=== PATIENT | female | born 1945 | race Caucasian/White ===

== ENCOUNTER 2018-04-08 06:39 | Day surgery (SDC) | payer MEDICARE, OTHER, SELFPAY ==
[2018-03-15 12:45] VITALS: BMI 32.8
[2018-04-08] VITALS (15 sets, daily range): BP systolic 91–137; BP diastolic 53–88; PULSE 62–83; RESP 10–18; TEMP 36.1–37; O2SAT 95–99; BMI 32.5
[2018-04-08] MEDS: LACTATED RINGERS 1,000 ML 42 ML IV ×2 (07:30→09:29)
[2018-04-08] MEDS: MIDAZOLAM 2 MG/2 ML VIAL IV (07:45)
[2018-04-08] MEDS: fentaNYL 100 MCG/2 ML INJ IV (07:45)
--- NOTE | 2018-04-08 08:00 | SUR.PREOP ---
Femoral block done by Dr Urban between 0745 and 0752. Tolerated well. Pre op meds of Fentanyl & Midazolam given and no oxygen used.
[2018-04-08] MEDS: CELECOXIB 200 MG CAPSULE 400 MG PO (08:04)
[2018-04-08] MEDS: CEFAZOLIN 2 GM/100 ML FROZ.PIGGY IV ×3 (08:09→23:44)
--- NOTE | 2018-04-08 08:13 | PM.PREOP ---
Pre-operative Note Interval Note Pre-op Check: History & Physical Reviewed by Physician
[2018-04-08] MEDS: LIDOCAINE 1% W/EPI INJ 20 ML INJ (08:22)
--- NOTE | 2018-04-08 08:53 | SUR.OPER ---
Supine on padded OR bed. Pillow under head, arms secured on padded armboards <90 degree abduction. Safety belt across torso. Non-operative leg secured with tape over blanket over lower leg. Operative leg secured in DeMayo/Shabbir positioner. Foam padded brace at thigh of operative leg.
[2018-04-08] MEDS: BUPIVACAINE 0.5% W/ EPI (PF) 20 ML, BUPIVACAINE LIPOSOME 266 MG, SODIUM CHLORIDE 0.9% 8... INJ (09:10)
[2018-04-08] MEDS: BUPIVACAINE 0.5% W/ EPI (PF) 10 ML, TRANEXAMIC ACID 1,000 MG, SODIUM CHLORIDE 0.9% 20 ML INJ (09:11)
[2018-04-08] MEDS: POVIDONE-IODINE 15 ML, SODIUM CHLORIDE 0.9% 250 ML TOP (09:49)
--- NOTE | 2018-04-08 10:02 | SUR.OPER ---
RELIEF V [id number]
--- NOTE | 2018-04-08 10:15 | P.OP_ITS ---
Operative Date/Time/Diagnoses - Date of procedure: 04/08/18 Time of procedure: 10:10 Pre-op diagnosis: Right knee osteoarthritis with flexion contracture Post-op diagnosis: same Procedure & Clinicians Procedure: Right total knee arthroplasty Same procedure as scheduled: Yes Indications: The patient presents today for total knee arthroplasty after failure of conservative treatment. The nature of the procedure including the risks and benefits, alternatives, postoperative course and expected outcome were discussed and all questions answered. Consent was obtained. Operative site confirmed and marked. Surgeon: Julio Cameron Ware[employer] Team Leader: Sneha Meyer Anesthesia Type: Spinal, Peripheral nerve block and Local Operative Notes Findings: The patient had a 15-20 degree flexion contracture and relatively fixed varus alignment. Closure Type: primary Specimen(s): none sent Implants & Drains: Stoll and [employer] Shiva BCS: 5 femoral component, 5 tibial component, 9 mm BCS polyethylene tray and 35 mm x 7.5 mm mm round patella Applied: implant(s) Estimated Blood Loss (mL): 75 Tourniquet time (min): 35 Procedure in detail: The patient was taken to the operative suite and placed under spinal anesthesia with an adductor nerve block. The patient was given prophylactic antibiotics prior to surgery. The patient was also given tranexamic acid, 1 g, just prior to surgery for postoperative hemostasis. [The lateral knee was prepped and the joint injected with 20 mL of 1% Lidocaine with epinephrine. ] The knee was then prepped and draped in usual sterile fashion. The leg was exsanguinated with an Esmarch dressing and the tourniquet raised to [250] torr. A 15 cm anterior incision was made. Next a medial trivector arthrotomy was made. The extensor mechanism was marked to ensure accurate repair. Initial exposing dissection was carried out medially and laterally. The knee was then extended and the patellar thickness was measured and a cut made removing approximately 7-8 mm of bone [ with a goal of restoring normal patellar thickness] . The patella was then sized and drilled. Some excess lateral bone was excised and the patellofemoral ligament released. The tourniquet was then released. The knee was then flexed and the [employer] femoral guide was placed. The anterior pins were placed and the distal rotation holes drilled. The distal cutting guide was placed and the templated distal femoral cut was made. The templating cutting block was then placed and the anterior, posterior and chamfer cuts made. The [employer] tibial guide was placed and the alignment checked along the axis of the proximal tibial with a yvan. The proximal tibial cut was then made with an oscillating saw. All meniscus and bony debris was then removed. Flexion extension gaps were checked. The knee was tight medially especially in flexion. In addition to routine osteophyte removal and soft tissue releases the MCL was released percutaneously with an 18 gauge needle which helped to balance the knee. There is still slightly increased lateral compared to medial laxity in flexion. The soft tissues were then injected with a combination of [20 mL of half percent Marcaine with epinephrine and 20 mL of Exparel]. The trial components were then placed. The knee went into full extension and flexion beyond 120?. There was [excellent] medial- lateral balance throughout motion. Patellar tracking was [excellent]. The trial components were removed and size is confirmed for the final implants. The knee was then exsanguinated with an Esmarch dressing and the tourniquet reapplied for cementing. The knee was cleansed with Pulsavac irrigation and dried. The final components were cemented in with high viscosity vacuum mixed bone cement with antibiotics. The knee was held in extension and the patellar clamp until the cement had adequately cured. The knee was then irrigated with dilute Betadine solution. The extensor mechanism was closed with 5 interrupted #1 Vicryl sutures in 90 degrees of flexion. [The joint was then injected with a combination of 1 g of tranexamic acid and 20 mL of quarter percent Marcaine with epinephrine.] The subcutaneous tissue was closed with 2-0 Vicryl. The skin was closed with [ jabari and surgical adhesive]. [ An Aquacell] dressing and Bobby wrap were then applied. Complications: none Condition: stable Disposition: PACU Plan for aftercare: [facility] protocol for total knee arthroplasty. Aspirin for DVT prophylaxis.
--- NOTE | 2018-04-08 10:30 | DI.RAD.S_ITS ---
PROCEDURE: XR KNEE RT 1TO2V INDICATIONS: POST OP RIGHT KNEE TECHNIQUE: 2 views of the knee were acquired. COMPARISON: [facility], MR, MR KNEE RT WO CON, 03/10/2018, 9:55. [facility], CR, XR KNEE 1 OR 2 VIEWS RIGHT, 03/01/2018, 10:34. FINDINGS: Expected postoperative changes of the right knee are present related to interval total right knee arthroplasty. The metallic prosthetic components are properly seated without periprosthetic fracture or lucency. No suspicious osseous lesions are evident. Expected postoperative changes within the overlying soft tissues are present with areas of soft tissue edema, air, and fluid. IMPRESSION: Expected post surgical changes related to total right knee arthroplasty. Dictated by: Gerry Morton M.D. on 04/08/2018 at 10:22 Approved by: Gerry Morton M.D. on 04/08/2018 at 10:23
--- NOTE | 2018-04-08 11:43 | PC.NURSE ---
Day shift: Arrived on unit at approx 1115 from PACU in AC bed. Oriented to room and call light. Denies pain. Sensation limited BLE's from spinal and block. RA 97%. Using I.S. JUDY wrqap and aquacel CDI. Ice at site and tolerating. Call light in reach. Agrees to not get OOB w/o help from staff. SL at this time.
[2018-04-08] MEDS: ACETAMINOPHEN 325 MG TABLET 650 MG PO ×2 (12:00→19:18)
[2018-04-08] MEDS: OXYCODONE IR 5 MG TABLET 10 MG PO ×3 (12:20→20:45)
[2018-04-08] MEDS: ONDANSETRON 4 MG ODT PO ×2 (15:37→23:13)
--- NOTE | 2018-04-08 16:02 | PT.IIE ---
Current Diagnoses Unilateral primary osteoarthritis, right knee (04/08/18) Surgery Performed Operation Date: 04/08/18 07:45 Actual Procedures p Total Knee Arthroplasty(Right) - Julio Cameron MD Surgical History (Last Updated 03/15/18 @ 13:14 by Corry Moeller RN) History of bilateral tubal ligation (Acute) Hx of eye surgery (Acute) Hx of hammer toe correction (Acute) Hx of tonsillectomy (Acute) History of hip replacement Status post arthroscopy Medical History (Last Updated 03/15/18 @ 12:49 by Corry Moeller RN) Osteoarthritis (Acute) Physical Therapy Inpatient Evaluation/Re-Eval M1 PT/OT-IP Prior Functional Status Start: 04/08/18 15:48 Freq: NEEDED Status: Active Protocol: Document 04/08/18 15:49 AB (Rec: 04/08/18 16:02 AB [id number]) Medical Review Prior Functional Status Medical History Reviewed Yes Mobility and Gait pt stated that she is independent with all mobilities and ambulation without AD Social History Household Members spouse Living Arrangements House Number of Floors (Floors) Two Floors Number of Stairs To Enter/Railing? has 2 steps to enter from the garage without rails; from the front door has 1 step to enter but pt has to walk farther to get into the house pt stays on main level of the house Home Environment Walk in Shower Tub/Shower Built-In Shower Seat Home Equipment Front Wheel Walker Straight Cane Employment Status Retired Additional Social History Comment pt has a tub shower without shower chair but sister can lend her a shower chair. has grab bar on tub shower. pt stated that spouse has a walk in shower with buit in seat but no grab bars. M2 PT-IP Current Condition Start: 04/08/18 15:48 Freq: NEEDED Status: Active Protocol: Document 04/08/18 15:49 AB (Rec: 04/08/18 16:02 AB [id number]) Physical Therapy Current Condition Current Condition Evaluation Date 04/08/18 Treatment Diagnosis s/p R TKA Onset Date 04/08/18 Weight Bearing Status Weight Bearing Status Weight Bear as Tolerated M3 PT-IP Subjective Start: 04/08/18 15:48 Freq: NEEDED Status: Active Protocol: Document 04/08/18 15:49 AB (Rec: 04/08/18 16:02 AB [id number]) Subjective Physical Therapy Visit Type Type Initial Evaluation Visit Start Time 15:05 Visit Stop Time 15:45 Total Visit Minutes 40 Number of TESTER ROCKET ENGINE Visits 0 Physical Therapy Visit Comments Patient Comments pt agreeable to do therapy Therapy Pain Assessment Pain When Pain Assessed At Rest Pain Present Pain Present Pain Reported Location Right Knee Intensity 4 Scale Used Numeric (1 - 10) Pain Management Techniques Apply Cold M4 PT-IP Mobility and Gait Start: 04/08/18 15:48 Freq: NEEDED Status: Active Protocol: Document 04/08/18 15:49 AB (Rec: 04/08/18 16:02 AB [id number]) PT-Bed Mobility Assessment Supine to Sit Supine to Sit Standby Assistance PT-Transfer Assessment Sit to and From Stand Sit to and from Stand Minimal Assistance Equipment Transfer Assistive Device Gait Belt Front Wheeled Walker Orthotic/Prosthetic Devices or Brace: Yes Transfers Transfer Destination Toilet Transfer Technique pt ambulated to the toilet Gait Assessment Gait Gait Assistance Required: Minimum Assistance Distance (Feet) (feet) 20 Able to Maintain Weight Bearing Status Yes During Gait Assistive Devices Assistive Device Gait Belt Front Wheeled Walker Orthotic/Prosthetic Devices or Brace: No Gait Deviations General Gait Pattern Antalgic Step-to Gait Factors Limiting Gait Function Factors Limiting Gait Function Decreased Activity Tolerance Decreased Sensation Decreased Strength Pain Poor Balance Comments Gait Comments pt still feels numbness on R foot affecting ambulation. pt ambulated from bedside to the toilet using FWW min A and cues. pt required min A for controlled descent to the toilet using grab bar to assist. pt completed sit to stand from the toilet using grab bar min A and cues and ambulated towards the chair using FWW min A and cues. informed nurse regarding c/o nausea. BP 137/75. PT-Balance Assessment Sitting Balance and Reactions Static Sitting Balance Ability Good Dynamic Sitting Balance Ability Good Standing Balance and Reactions Static Standing Balance Ability Fair Dynamic Standing Balance Ability Fair M5 PT-IP Objective Assessments Start: 04/08/18 15:48 Freq: NEEDED Status: Active Protocol: Document 04/08/18 15:49 AB (Rec: 04/08/18 16:02 AB [id number]) Orientation Orientation/Cognition Level of Alertness Alert Orientation Name Age Birthday Month Date Year Day of Week Place Situation Gross Range of Motion Lower Extremity ROM Assessment Right Impaired Strength Lower Extremity Strength Assessment Left Impaired Sensation Assessment Sensation Gross Sensation Right LE Impaired Sensation Description Numbness M6 PT-IP Treatment Start: 04/08/18 15:48 Freq: NEEDED Status: Active Protocol: Document 04/08/18 15:49 AB (Rec: 04/08/18 16:02 AB [id number]) Physical Therapy Treatment Education Education Provided Precautions Weight Bearing Status Post-Op Packet Safety M7 PT-IP Assessment and Plan Start: 04/08/18 15:48 Freq: NEEDED Status: Active Protocol: Document 04/08/18 15:49 AB (Rec: 04/08/18 16:02 AB [id number]) PT Summary Assessment and Plan Potential Rehabilitation Potential Good Status of Condition at Evaluation Evolving Summary Impairments Pain ROM Strength Balance Coordination Sensation Tone Cognition Bed Mobility Transfers Gait Activity Tolerance Assessment Summary pt requiring min A with mobility and unable to tolerate much activity today with c/o nausea. BP checked: 137/75. pt will likely improve during hospital stay. pt will have spouse assist her at home and has outpt PT already set up. Goals Bed Mobility Goal Independent Transfer Goal Independent Gait Goal Independent Gait Distance 100 Other Goals up/down 2 steps without rails using FWW Days to Meet Goals 3 Frequency of Treatment Frequency Of Treatment Twice a Day Treatment Plan Physical Therapy Treatment Plan Bed Mobility Training Transfer Training Gait Training Therapeutic Exercise Balance Retraining Post Op Education Discharge Planning Hot or Cold Pack Neuromuscular Re-ed Coordination Retraining Manual Therapy Other Recommendations and Next Treatment ambulation, stair climbing Focus Recommendations To Nursing Amount of Assist Needed 1 Person Assist Discharge Recommendations PT Discharge Recommendations Home with Assistance Outpatient PT Provider Visit Care Team Role Provider Type Chandni Mckeon MD Primary Care Provider Physician Specialty: Family Practice Julio Cameron MD Admit Provider Physician Attending Provider Specialty: Orthopedics
[2018-04-08] MEDS: SODIUM CHLORIDE 0.9% FLUSH 10 ML IV ×4 (16:36→23:44)
[2018-04-08] MEDS: ASPIRIN EC 81 MG TABLET PO (20:45)
[2018-04-08] MEDS: NAPROXEN 250 MG TABLET PO (20:45)
[2018-04-08] MEDS: METOCLOPRAMIDE HCL 10 MG TABLET PO (22:10)
[2018-04-08] MEDS: HYDROMORPHONE 2 MG INJ IV (22:10)
--- NOTE | 2018-04-08 22:30 | PC.NURSE ---
SHIFT NOTE Pt states PRN 10mg oxycodone ineffective for R knee pain during the late evening. pt had 1 episode emesis while up to the BSC. administered PRN reglan and dilaudid. Pt educated on pain management options available. pt currently resting, states she prefers not to be woken for pain meds at night. will communicate to oncoming RN.
--- NOTE | 2018-04-09 00:02 | PC.NURSE ---
Addendum entered by Loni Galvan R.N. 04/09/18 05:52: Patient states pain is down to 2/10 and denies any further nausea. Agreeable to taking scheduled Tylenol this morning. Original Note: Addendum entered by Loni Galvan R.N. 04/09/18 04:44: Assisted to walk to bathroom using walker and SBA and did well with transfer and ambulation. After getting back to bed became nauseated again and had a 160cc emesis of light bile colored fluid. Medicated with Reglan for nausea. Initially when getting out of bed denied both pain and nausea. Now after being up states the dogs are starting to bark and rates pain as 5/10; medicated with Oxycodone and ice applied to knee. Original Note: Patient is alert and oriented. Breath sounds CTA with RA sat of 91%; reports she surpasses goal on incentive spirometer. HRR. During shift change patient had a 250cc emesis after which she was medicated with Zofran. On initial reassessment denied nausea but after movement had another 100cc emesis. Plan to wait to see if Zofran will still work to prevent further emesis and if not will try IM Vistaril. BT hypoactive but patient states she is passing flatus. Denies dysuria, frequency, urgency or incontinence. Bobby dressing to left knee is CDI. CMS is intact bilaterally with full sensation now returned. Able to turn self in bed. Reportedly up to bathroom with walker and 1 assist; denies unsteadiness or weakness. Does state pain is currently 3/10 but declined pain medication or ice pack; also declined scheduled Tylenol. Fall risk score is high and bed alarm is activated.
[2018-04-09 03:10] VITALS: BP 105/65; PULSE 74; RESP 16; TEMP 36.4; O2SAT 95
[2018-04-09] MEDS: METOCLOPRAMIDE HCL 10 MG TABLET PO (04:28)
[2018-04-09] MEDS: OXYCODONE IR 5 MG TABLET 10 MG PO ×3 (04:30→12:48)
[2018-04-09] MEDS: ACETAMINOPHEN 325 MG TABLET 650 MG PO ×2 (05:48→11:16)
--- NOTE | 2018-04-09 07:43 | PM.DS.1 ---
History of Present Illness Date Patient Seen: 04/09/18 Time Patient Seen: 07:43 Chief complaint: [id number] RIGHT TOTAL KNEE ARTHROPLASTY Narrative: Patient is a 72-year-old female with a history of right knee osteoarthritis. She failed conservative treatment and elected for a right total knee replacement with Dr. Cameron at [facility] on 04/08/18. Discharge Providers Date of admission: 04/08/18 06:39 Primary care physician: Chandni Mckeon MD Consults: 04/08/18 11:13 Consult to Discharge Planning Routine Comment: Consult to Physical Therapy Evaluate & Treat Comment: Physician Instructions: postop TKA protocol Consult to Respiratory Therapy Evaluate & Treat Comment: Physician Instructions: Evaluate and treat Discharge provider: Sneha Meyer PA-C Summary Discharge Diagnosis: Right knee osteoarthritis. Hospital Course: Patient was admitted and taken to the operating room where she had a right total knee arthroplasty by Dr. Camerno. She recovered well and was transferred to the floor for further care. Later that night she had issues with nausea and vomiting. She was given Zofran and Reglan. She has a history of postop nausea and vomiting. She had given a prescription for oral dissolving Zofran. Patient has been up to go the restroom and is ambulating. She would like to go home later this afternoon if cleared by PT and have her nausea and vomiting have settled down. Patient will be discharged with the prescription for Zofran 4 mg q.4h as needed nausea. She is a [facility] patient and already has prescriptions for oxycodone, Vistaril and an anti inflammatory. Aspirin 81 mg b.i.d. will be used for DVT prophylaxis. She has a follow-up appointment next week in our office. She has all therapy appointment next week at her [facility]. Status at Discharge Cognitive/behavioral status at discharge: Alert and orient x3 Functional status at discharge: independent ambulation Overall status at discharge: patient is progressing back to baseline Time Spent with Patient Less than 30 minutes Exam Vital Signs (past 8 hours): Vital Signs - 8 hr 04/09/18 03:10 Temperature 97.6 F Pulse Rate 74 Respiratory Rate 16 Blood Pressure 105/65 Pulse Oximetry 95 Pulse Oximetry 95 Oxygen Delivery Method Room Air Narrative Exam Narrative: Patient in bed. Alert orient x3. Appears comfortable. Right knee dressing clean dry and intact. With the Bobby overwrap. Moderate swelling right knee. Bilateral calves soft and nontender. 5/5 right ankle strength. Neurovascular status intact. Abdominal area soft and nontender in all 4 quadrants. Discharge Plan Discharge Plan Patient Disposition: Home, Self-Care Discharge comment: Patient can be discharged this afternoon if cleared by physical therapy and nausea is under control. Discharge Med Rec/Prescriptions Prescriptions: New ondansetron 4 mg Tablet,Disintegrating 4 mg PO Q4HR PRN (Reason: Nausea) Qty: 40 RF: 0 hydroxyzine HCl 50 mg/mL Solution 25 mg IM Q4H PRN (Reason: Nausea) 30 Days RF: 0 oxycodone 5 mg Tablet 10 mg PO Q4H PRN (Reason: Pain, Moderate) Qty: 0 RF: 0 aspirin 81 mg Tablet,Delayed Release (Dr/Ec) 81 mg PO BID Qty: 90 RF: 0 Continue acetaminophen 500 mg Capsule 1,000 mg PO BEDTIME RF: 0 naproxen sodium [Aleve] 220 mg Capsule 220 mg PO BEDTIME RF: 0 Follow up/Referrals: Julio Cameron MD [Physician] - (F/u on 04/15/18 at the [facility] office at the scheduled time) Provider Discharge Instructions Diet: Diet as Tolerated Activity: Activity as tolerated. Home exercises for total knee replacement. Start physical therapy next week. Cold/Heat Therapy: Apply ice to affected area for swelling and pain as needed Wound Care Report to your healthcare provider any signs of infection, such as:: chills, fever, night sweats, increased pain and unusual drainage Dressing: May shower. Leave dressing intact. Visit Report/Discharge Packet Instructions: DI for Knee Replacement Discharge Data Primary Care Provider: Chandni Mckeon Attending Provider: Juilo Cameron Admit Date/Time: 04/08/18 06:39
[2018-04-09 07:45] VITALS: BP 109/64; PULSE 77; RESP 14; TEMP 36.3; O2SAT 97
--- NOTE | 2018-04-09 07:47 | P.DS_ITS ---
History of Present Illness Date Patient Seen: 04/09/18 Time Patient Seen: 07:43 Chief complaint: [id number] RIGHT TOTAL KNEE ARTHROPLASTY Narrative: Patient is a 72-year-old female with a history of right knee osteoarthritis. She failed conservative treatment and elected for a right total knee replacement with Dr. Cameron at [facility] on 04/08/18. Discharge Providers Date of admission: 04/08/18 06:39 Primary care physician: Chandni Mckeon MD Consults: 04/08/18 11:13 Consult to Discharge Planning Routine Comment: Consult to Physical Therapy Evaluate & Treat Comment: Physician Instructions: postop TKA protocol Consult to Respiratory Therapy Evaluate & Treat Comment: Physician Instructions: Evaluate and treat Discharge provider: Sneha Meyer PA-C Summary Discharge Diagnosis: Right knee osteoarthritis. Hospital Course: Patient was admitted and taken to the operating room where she had a right total knee arthroplasty by Dr. Cameron. She recovered well and was transferred to the floor for further care. Later that night she had issues with nausea and vomiting. She was given Zofran and Reglan. She has a history of postop nausea and vomiting. She had given a prescription for oral dissolving Zofran. Patient has been up to go the restroom and is ambulating. She would like to go home later this afternoon if cleared by PT and have her nausea and vomiting have settled down. Patient will be discharged with the prescription for Zofran 4 mg q.4h as needed nausea. She is a [facility] patient and already has prescriptions for oxycodone, Vistaril and an anti inflammatory. Aspirin 81 mg b.i.d. will be used for DVT prophylaxis. She has a follow-up appointment next week in our office. She has all therapy appointment next week at her [facility]. Status at Discharge Cognitive/behavioral status at discharge: Alert and orient x3 Functional status at discharge: independent ambulation Overall status at discharge: patient is progressing back to baseline Time Spent with Patient Less than 30 minutes Exam Vital Signs (past 8 hours): Vital Signs - 8 hr 3 04/09/18 03:10 Temperature 97.6 F Pulse Rate 74 Respiratory Rate 16 Blood Pressure 105/65 Pulse Oximetry 95 Pulse Oximetry 95 Oxygen Delivery Method Room Air Narrative Exam Narrative: Patient in bed. Alert orient x3. Appears comfortable. Right knee dressing clean dry and intact. With the Bobby overwrap. Moderate swelling right knee. Bilateral calves soft and nontender. 5/5 right ankle strength. Neurovascular status intact. Abdominal area soft and nontender in all 4 quadrants. Discharge Plan Discharge Plan Patient Disposition: Home, Self-Care Discharge comment: Patient can be discharged this afternoon if cleared by physical therapy and nausea is under control. Discharge Med Rec/Prescriptions Prescriptions: New ondansetron 4 mg Tablet,Disintegrating 4 mg PO Q4HR PRN (Reason: Nausea) Qty: 40 RF: 0 hydroxyzine HCl 50 mg/mL Solution 25 mg IM Q4H PRN (Reason: Nausea) 30 Days RF: 0 oxycodone 5 mg Tablet 10 mg PO Q4H PRN (Reason: Pain, Moderate) Qty: 0 RF: 0 aspirin 81 mg Tablet,Delayed Release (Dr/Ec) 81 mg PO BID Qty: 90 RF: 0 Continue acetaminophen 500 mg Capsule 1,000 mg PO BEDTIME RF: 0 naproxen sodium [Aleve] 220 mg Capsule 220 mg PO BEDTIME RF: 0 Follow up/Referrals: Julio Cameron MD [Physician] - (F/u on 04/15/18 at the [facility] office at the scheduled time) Provider Discharge Instructions Diet: Diet as Tolerated Activity: Activity as tolerated. Home exercises for total knee replacement. Start physical therapy next week. Cold/Heat Therapy: Apply ice to affected area for swelling and pain as needed Wound Care Report to your healthcare provider any signs of infection, such as:: chills, fever, night sweats, increased pain and unusual drainage Dressing: May shower. Leave dressing intact. Visit Report/Discharge Packet Instructions: DI for Knee Replacement Discharge Data Primary Care Provider: Chandni Mckeon Attending Provider: Julio Cameron Admit Date/Time: 04/08/18 06:39
[2018-04-09] MEDS: ASPIRIN EC 81 MG TABLET PO (08:59)
[2018-04-09] MEDS: SODIUM CHLORIDE 0.9% FLUSH 10 ML IV (08:59)
[2018-04-09] MEDS: ONDANSETRON 4 MG ODT PO ×2 (09:38→12:46)
[2018-04-09] MEDS: hydrOXYzine pamoate 25 MG CAPSULE PO ×2 (10:19→13:14)
[2018-04-09 11:45] VITALS: BP 110/65; PULSE 75; RESP 16; TEMP 36.5; O2SAT 97
--- NOTE | 2018-04-09 13:16 | PC.NURSE ---
Day shift: Pt left unit at approx 1315 w/ her spouse going home in personal vehicle. All paperwork signed and questions answered. Pt has all personal belongings. Medicated for pain and nausea just prior to d/c as well.
--- NOTE | 2018-04-09 15:12 | CM.DANOTE ---
DCP Assessment/ DC NOte: Met w/pt this morning, explained SW role. Pt was getting ready to leave w/spouse. Pt was part of the [facility]. Pt explained she is indp/active at baseline and denies needs upon her return home. Pt scheduled w/outpt therapy. Spouse to assist and transport home. BRENNAN
--- NOTE | 2018-04-09 15:37 | PT.IPTN ---
Current Diagnoses Unilateral primary osteoarthritis, right knee (04/08/18) Surgery Performed Operation Date: 04/08/18 07:45 Actual Procedures p Total Knee Arthroplasty(Right) - Julio Cameron MD Physical Therapy Treatment Note M2 PT-IP Current Condition Start: 04/08/18 15:48 Freq: NEEDED Status: Active Protocol: Document 04/09/18 09:15 TMS (Rec: 04/09/18 15:37 TMS [email or web address]) Physical Therapy Current Condition Current Condition Evaluation Date 04/08/18 Treatment Diagnosis s/p R TKA Onset Date 04/08/18 Precautions Other Precautions Reviewed edema control with right L.E. in straight position and ice. Weight Bearing Status Weight Bearing Status Weight Bear as Tolerated M3 PT-IP Subjective Start: 04/08/18 15:48 Freq: NEEDED Status: Active Protocol: Document 04/09/18 09:15 TMS (Rec: 04/09/18 15:37 TMS [email or web address]) Subjective Physical Therapy Visit Type Type Treatment Note Visit Start Time 09:00 Visit Stop Time 09:38 Total Visit Minutes 38 Number of [employer] Visits 1 Physical Therapy Visit Comments Patient Comments Pt. has discharge orders, states she doesn't have pain at rest. Only had tylenol. Therapy Pain Assessment Pain When Pain Assessed At Rest Location Right Knee Intensity 0 Scale Used Numeric (1 - 10) Pain Management Techniques Apply Cold M4 PT-IP Mobility and Gait Start: 04/08/18 15:48 Freq: NEEDED Status: Active Protocol: Document 04/09/18 09:15 TMS (Rec: 04/09/18 15:37 TMS [email or web address]) PT-Bed Mobility Assessment Supine to Sit Supine to Sit Standby Assistance Scooting Scooting to Edge of Bed Standby Assistance PT-Transfer Assessment Sit to and From Stand Sit to and from Stand Standby Assistance Equipment Transfer Assistive Device Front Wheeled Walker Transfer Ability Level of Assist Standby Assistance Gait Assessment Gait Gait Assistance Required: Contact Guard Assist Able to Maintain Weight Bearing Status Yes During Gait Assistive Devices Assistive Device Front Wheeled Walker Orthotic/Prosthetic Devices or Brace: No Gait Deviations General Gait Pattern Decreased Stride Length Factors Limiting Gait Function Factors Limiting Gait Function Decreased Strength Pain Comments Gait Comments Good step through gait pattern , slightly shakey with gait but good stability. Pt. had emesis after treatment, RN aware. Pt. requested pain medication after treatment, RN aware. Stair Climbing Assessment Evaluation Level of Assist On Stairs Minimal Assistance Devices Stair Climbing Assistive Devices Straight Cane Technique/Endurance Stair Climbing Direction Ascend and Descend Stair Climbing Technique Step to Step Stair Climbing Set # Repetitions (reps) 1 Comments Stair Climbing Comments Pt. doesn't have rails at home , did well using cand and Minimal manual assist. M5 PT-IP Objective Assessments Start: 04/08/18 15:48 Freq: NEEDED Status: Discharge Protocol: Document 04/08/18 15:49 AB (Rec: 04/08/18 16:02 AB [id number]) Orientation Orientation/Cognition Level of Alertness Alert Orientation Name Age Birthday Month Date Year Day of Week Place Situation Gross Range of Motion Lower Extremity ROM Assessment Right Impaired Strength Lower Extremity Strength Assessment Left Impaired Sensation Assessment Sensation Gross Sensation Right LE Impaired Sensation Description Numbness M6 PT-IP Treatment Start: 04/08/18 15:48 Freq: NEEDED Status: Active Protocol: Document 04/09/18 09:15 TMS (Rec: 04/09/18 15:37 TMS [email or web address]) Physical Therapy Treatment Exercises Exercises Ankle Pumps Quad Sets Heel Slides Straight Leg Raises Short Arc Quads Passive Knee Extension Hang M7 PT-IP Assessment and Plan Start: 04/08/18 15:48 Freq: NEEDED Status: Active Protocol: Document 04/09/18 09:15 TMS (Rec: 04/09/18 15:37 TMS [email or web address]) PT Summary Assessment and Plan Treatment Plan Other Recommendations and Next Treatment Pt. going home today. Focus Recommendations To Nursing Amount of Assist Needed 1 Person Assist Discharge Recommendations PT Discharge Recommendations Home with Assistance Outpatient PT Equipment Needed for Home Before FWW, has straight cane for Discharge gait.
== END 2018-04-09 13:18 | disposition home or self-care (01) ==
LOC: AC 04-09 11:54 → OR 04-09 16:41
PROVIDERS: PCP Family Medicine; Visit Provider Orthopaedic Surgery
PROC: 0SRC0JZ Replacement of Right Knee Joint with Synthetic Substitute, Open Approach (ICD-10-PCS; CPT 27447; principal; 2018-04-08 07:45)
DX: M17.11 Unilateral primary osteoarthritis, right knee (principal); G89.18 Other acute postprocedural pain; E66.9 Obesity, unspecified; G47.33 Obstructive sleep apnea (adult) (pediatric); Z68.32 Body mass index [BMI] 32.0-32.9, adult
CPT/HCPCS: 27447; 64450; 73560; 97110; 97116; 97162; 97530; C1776; C9290; J0690; J1170; J2250; J2704; J3010

== ENCOUNTER → 2019-03-31 07:43 | Outpatient (CLI) | payer MEDICARE, OTHER, SELFPAY ==
[2018-04-08 11:27] VITALS: BMI 32.5
[2019-03-31 09:54] LABS: Cholesterol 184 mg/dL (140-199); Glucose 98 mg/dL (80-110); HDL Cholesterol 92 mg/dL (40-60); LDL Cholesterol Calculated 75 mg/dL (<100); Triglycerides 85 mg/dL (35-150)
== END ==
PROVIDERS: PCP Family Medicine; Visit Provider Family Medicine
DX: Z13.1 Encounter for screening for diabetes mellitus (principal); Z13.6 Encounter for screening for cardiovascular disorders
CPT/HCPCS: 36415; 80061; 82947

== ENCOUNTER 2019-05-26 12:37 | Day surgery (SDC) | payer MEDICARE, OTHER, SELFPAY ==
[2018-04-08 11:27] VITALS: BMI 32.5
[2019-05-26] VITALS (7 sets, daily range): BP systolic 109–131; BP diastolic 62–79; PULSE 71–96; RESP 11–18; TEMP 36.6–36.8; O2SAT 93–98; BMI 20.5
--- NOTE | 2019-05-26 12:51 | PM.HP.1 ---
History of Present Illness Date Patient Seen: 05/26/19 Time Patient Seen: 13:51 Chief complaint: 23234 SCREENING COLONOSCOPY Narrative: 73yo F for surveillance colonoscopy. Last in 2009 with a polyp found, told to come back in 5 years. No family history, no alarm symptoms. Patient History Medical History Cataracts, bilateral (Chronic) Hearing loss (Chronic) Osteoarthritis (Chronic) Osteopenia (Chronic) Shoulder pain (Chronic ~2017) Vertigo (Chronic ~2014) Vision disorder (Chronic) Chicken pox (Resolved) Measles (Resolved ~1947) Mumps (Resolved ~1947) Surgical History Anesthesia (Resolved) History of bilateral tubal ligation (Resolved) History of hip replacement (Resolved ~2006) Hx of eye surgery (Resolved) Hx of hammer toe correction (Resolved ~2015) Hx of tonsillectomy (Resolved) Status post arthroscopy (Resolved ~2017) Family History (Updated 04/03/19 @ 19:33 by Jinny Oliver) Father Heart disease Mother Heart disease Stroke Grandfather Cancer Grandmother Heart disease Grandfather Heart disease Grandmother Stroke Social History marital status: number of children: 2 household members: spouse lives independently: Yes caregiver/support person: No housing: house Smoking Status: Never smoker second hand exposure: No alcohol intake: current substance use type: does not use Family & Social History Family History Father Heart disease Mother Heart disease Stroke Grandfather Cancer Grandmother Heart disease Grandfather Heart disease Grandmother Stroke Social History: household members spouse lives independently Yes caregiver/support person No Tobacco & Substance use: Smoking Status Never smoker alcohol intake current Meds Home Medications Medication Instructions Recorded Confirmed Type acetaminophen [Tylenol Extra See Rx Instructions .ROUTE 05/26/19 05/26/19 History Strength] .COMPLEX PRN Allergies Allergy/AdvReac Type Severity Reaction Status Date / Time No Known Drug Allergies Allergy Verified 02/09/19 08:34 Review of Systems Constitutional Constitutional: Reports as per HPI Exam Narrative Exam Narrative: AAO, NAD, female of healthy weight EOMI, MMM, no scleral icterus unlabored RA soft, nt/nd MAEW visible skin dry and intact Assessment & Plan (1) Screening for colorectal cancer: Current visit: Yes Status: Acute Assessment & Plan narrative: - plan for surveillance colonoscopy --> all R/B/A discussed and pt wishes to proceed
[2019-05-26] MEDS: SODIUM CHLORIDE 0.9% 1,000 ML 200 ML IV (13:19)
--- NOTE | 2019-05-26 14:27 | PM.OP.ENDO ---
Operative Date/Time/Diagnoses Date of procedure: 05/26/19 Time of procedure: 14:28 Pre-op diagnosis: History of colon polyps Post-op diagnosis: same Procedure & Clinicians Study performed: Surveillance Colonoscopy Same procedure as scheduled: Yes Indications: 73yo F with history of a colon polyp at last low risk screening colonoscopy here for surveillance colonoscopy. Surgeon: Soniya Interiano Procedure Notes SCOAP/Timeout: 1400 Procedure in detail: After obtaining informed consent, the patient was brought to the GI suite and placed in the left lateral decubitus position on the examination table. After placement of appropriate monitors, the patient was given incremental doses of Versed and Fentanyl until an appropriate level of sedation was achieved. A time out was held per SCOAP protocol. A digital rectal examination was performed and did not reveal any masses or obstructing lesions. The colonoscope was gently passed into the patient's anus and the entire colon navigated to the level of the cecum with minimal difficulty. Prep was adequate. Once in the cecum, the scope was slowly withdrawn being sure to go before and beyond all mucosal folds and prominences as able to get a thorough examination. No masses or polyps are noted. Other findings include scattered diverticulosis in sigmoid colon. The distal sigmoid and rectum had tight folds and turns that were visualized as best as possible. At the level of the rectal vault, the scope was retroflexed and the internal anal canal was examined. The scope was straightened and air aspirated from the colon. The instrument was removed from the patient's body and the procedure was concluded. The patient was allowed to awaken from sedation without difficulty and taken to the post-anesthesia care unit in good condition. Scope withdrawal time: 9 min Sedation minutes: 25 Findings: diverticulosis (scattered in sigmoid, mild) Specimen(s): none sent Complications: none Impression: 1. Scattered sigmoid diverticulosis 2. Tight folds in rectum and distal sigmoid Recommendations: Colonscopy in 10 years and High fiber diet Follow up: as needed Disposition: PACU
[2019-05-26] MEDS: MIDAZOLAM 5 MG/5 ML VIAL IV (14:29)
[2019-05-26] MEDS: fentaNYL 250 MCG/5 ML INJ IV (14:30)
== END 2019-05-26 15:30 | disposition home or self-care (01) ==
PROVIDERS: PCP Family Medicine; Visit Provider Surgery
PROC: 0DJD8ZZ Inspection of Lower Intestinal Tract, Via Natural or Artificial Opening Endoscopic (ICD-10-PCS; CPT 45378; principal; 2019-05-26 14:00)
DX: Z86.010 Personal history of colon polyps (principal); K57.30 Diverticulosis of large intestine without perforation or abscess without bleeding
CPT/HCPCS: G0105; 99152; J2250; J3010

== ENCOUNTER → 2022-11-05 08:35 | Outpatient (CLI) | payer MEDICARE, SELFPAY ==
[2018-04-08 11:27] VITALS: BMI 32.5
== END ==
PROVIDERS: PCP Family Medicine; Visit Provider Family Medicine
DX: R31.9 Hematuria, unspecified (principal)
CPT/HCPCS: 87077; 87086; 87186

== ENCOUNTER → 2022-12-31 12:06 | Outpatient (CLI) | payer MEDICARE, SELFPAY ==
[2018-04-08 11:27] VITALS: BMI 32.5
== END ==
PROVIDERS: PCP Family Medicine; Visit Provider Physician Assistant
DX: R31.9 Hematuria, unspecified (principal)
CPT/HCPCS: 87086

== ENCOUNTER → 2023-01-05 08:26 | Outpatient (CLI) | payer MEDICARE, SELFPAY ==
[2018-04-08 11:27] VITALS: BMI 32.5
[2023-01-05 09:45] LABS: Add Manual Diff / Slide Review NO; Basophils Absolute Auto 0 /uL (0-100); Basophils Percent Auto 0.5 % (0-2); Eosinophils Absolute Auto 0 /uL (0-450); Hemoglobin 13.4 g/dL (12.0-16.0); Lymphocytes Absolute Auto 1100 /uL (1100-4500); Lymphocytes Percent Auto 25.2 % (25-40); Mean Corpuscular HGB Conc 34.4 % (30-36); Mean Corpuscular Hemoglobin 32.4 PG (26-34); Monocytes Absolute Auto 500 /uL (0-900); Monocytes Percent Auto 10.8 % (3-14); Neutrophils Absolute Auto 2900 /uL (1500-7000); Neutrophils Percent Auto 62.5 % (50-75); Platelet Count 214 X10^3/uL (150-400); Red Blood Cell Count 4.16 X10^6/uL (4.0-5.2); Red Cell Distribution Width 12.6 % (11.6-14.8); White Blood Cell Count 4.6 X10^3/uL (4.5-11.0)
[2023-01-05 10:13] LABS: Alanine Aminotransferase 22 IU/L (<35); Albumin 4.1 g/dL (3.5-5.0); Albumin Globulin Ratio 1.4 (1.0-2.8); Alkaline Phosphatase 98 U/L (38-126); Aspartate Aminotransferase 26 IU/L (14-36); BUN Creatinine Ratio 20.4 (6-22); Bilirubin Total 0.5 mg/dL (0.2-1.3); Blood Urea Nitrogen 11 mg/dL (7-17); Calcium 8.9 mg/dL (8.4-10.2); Carbon Dioxide 27 mmol/L (22-32); Chloride 105 mmol/L (98-107); Estimated Glomerular Filt Rate > 60 mL/min (>60); Globulin 2.9 g/dL (1.7-4.1); Glucose 105 mg/dL (80-110); HEMOLYSIS < 15 (0-50); Sodium 139 mmol/L (137-145)
== END ==
PROVIDERS: PCP Family Medicine; Referring Provider Physician Assistant; Visit Provider Physician Assistant
DX: R10.2 Pelvic and perineal pain (principal); R31.9 Hematuria, unspecified
CPT/HCPCS: 36415; 80053; 85025

== ENCOUNTER → 2023-02-20 11:10 | Outpatient (CLI) | payer MEDICARE, SELFPAY ==
[2018-04-08 11:27] VITALS: BMI 32.5
--- NOTE | 2023-02-20 11:12 | DI.CT.S_ITS ---
PROCEDURE: CT IVP A/P W/WO INDICATIONS: Gross hematuria TECHNIQUE: Optional 5 mm thick noncontrast images acquired from the diaphragm to the symphysis pubis. After the administration of intravenous contrast, 5 mm thick images acquired from the diaphragm to the symphysis pubis after a 10-minute delay. 2 mm thick coronal and sagittal reformats were then performed of the kidneys and ureters. For radiation dose reduction, the following was used: automated exposure control, adjustment of mA and/or kV according to patient size. COMPARISON: None. FINDINGS: Image quality: Excellent. Lung bases: Lung bases are clear. Heart size is normal. Urinary system: Both kidneys are normal in size, without hydronephrosis or nephrolithiasis on pre-contrast images. No perinephric fat stranding. There is normal bilateral renal enhancement. Renal calyces appear normal in morphology when filled with contrast. Opacified portions of both ureters demonstrate normal caliber. Bladder wall thickness is normal. No calcified bladder stones. Other solid organs: Liver is normal in size and enhancement. Gallbladder is unremarkable without calcified gallstones.. Biliary system is non dilated. Pancreas enhances normally. Spleen is normal in size and enhancement. No adrenal nodules. Peritoneum and bowel: There is mild uncomplicated sigmoid diverticulitis. There is inflammatory change in the subjacent fat. No free fluid or air. Nodes and vessels: No retroperitoneal or mesenteric adenopathy by size criteria. Aorta and inferior vena cava are normal in size. Abdominal wall: No ventral hernias. Pelvis: No pathologic free pelvic fluid. No inguinal hernias or adenopathy. Bones: No suspicious bony lesions. No vertebral body compression fractures. Total right hip arthroplasty. IMPRESSION: 1. No renal stones, ureteral stones, hydronephrosis, or findings suspicious for malignancy. 2. Mild uncomplicated sigmoid diverticulitis. Dictated by: Hai Mendiola M.D. on 02/20/2023 at 14:56 Approved by: Hai Mendiola M.D. on 02/20/2023 at 15:17
[2023-02-20 11:37] LABS: BUN Creatinine Ratio 27.5 (6-22); Blood Urea Nitrogen 14 mg/dL (7-17); Calcium 8.8 mg/dL (8.4-10.2); Carbon Dioxide 27 mmol/L (22-32); Chloride 106 mmol/L (98-107); Estimated Glomerular Filt Rate > 60 mL/min (>60); Glucose 104 mg/dL (80-110); HEMOLYSIS 24 (0-50); Potassium 4.5 mmol/L (3.4-5.1); Sodium 139 mmol/L (137-145)
== END ==
PROVIDERS: PCP Family Medicine; Referring Provider Urology; Visit Provider Urology
DX: R31.0 Gross hematuria (principal); K57.32 Diverticulitis of large intestine without perforation or abscess without bleeding
CPT/HCPCS: 74178; 80048; Q9967

== ENCOUNTER 2023-03-10 06:49 | Day surgery (SDC) | payer MEDICARE, SELFPAY ==
[2023-03-06 09:11] VITALS: BMI 32.5
--- NOTE | 2023-03-10 | PATH_ITS ---
[facility] Accession Number: [id number] No. of containers..05 Tissue . 01 Material submitted: . PART A: BLADDER, FLOOR - BLADDER FLOOR PART B: bladder - LEFT LATERAL BLADDER WALL PART C: bladder - RIGHT LATERAL BLADDER WALL PART D: bladder, dome - BLADDER DOME PART E: bladder - CEPHALAD BLADDER . 01 Diagnosis: A. Urinary Bladder, Floor, Biopsy: Urothelium/suburothelial stroma with mild chronic inflammation. Negative for dysplasia and neoplasia. . B. Urinary Bladder, Left Lateral Wall, Biopsy: Urothelium/suburothelial stroma with minimal chronic inflammation. Negative for dysplasia and neoplasia. . C. Urinary Bladder, Right Lateral Wall, Biopsy: Urothelium/suburothelial stroma and muscularis propria with minimal chronic inflammation. Negative for dysplasia and neoplasia. . D. Urinary Bladder, Dome, Biopsy: Urothelium/suburothelial stroma with mild chronic inflammation. Negative for dysplasia and neoplasia. . E. Urinary Bldder, Cephalad, Biopsy: Urothelium/suburothelial stroma with mild chronic inflammation. Negative for dysplasia and neoplasia. [facility] 03/13/2023 1604 Local . 01 Electronically signed: . Evelyn Hastings MD, Pathologist NPI- [id number] . 01 Gross description: . Part A: BLADDER FLOOR: Received in formalin is 1 fragment(s) of olivares, soft tissue measuring 0.4 x 0.2 x 0.1 cm submitted entirely in 1 cassette(s) Part B: LEFT LATERAL BLADDER WALL: Received in formalin is 1 fragment(s) of olivares, soft tissue measuring 0.2 x 0.2 x 0.1 cm submitted entirely in 1 cassette(s) Part C: RIGHT LATERAL BLADDER WALL: Received in formalin is 1 fragment(s) of olivares, soft tissue measuring 0.2 x 0.2 x 0.1 cm submitted entirely in 1 cassette(s) Part D: BLADDER DOME: Received in formalin is 1 fragment(s) of olivares, soft tissue measuring 0.5 x 0.4 x 0.3 cm submitted entirely in 1 cassette(s) Part E: CEPHALAD BLADDER: Received in formalin is 1 fragment(s) of olivares, soft tissue measuring 0.1 x 0.1 x 0.1 cm submitted entirely in 1 cassette(s) /[facility] 03/13/2023 1606 Local . 01 Pathologist provided ICD-10: N32.9 . 01 CPT . 783758, [id number], [id number], [id number], [id number] Specimen Comment: A courtesy copy of this report has been sent to [phone] Performed at: 01 [facility] Cytology [address] [place] [address], [place], [place] [id number] MD Julio Taylor MD Phone: [phone]
[2023-03-10 07:05] VITALS: BP 162/88; PULSE 93; RESP 19; TEMP 37.1; O2SAT 96; BMI 33.4
[2023-03-10] MEDS: LACTATED RINGERS 1,000 ML 21 ML IV (07:15)
--- NOTE | 2023-03-10 07:37 | PM.PREOP ---
Pre-operative Note COVID-19 COVID-19 status: Not tested Criteria for continued procedure: Non-surgical alternatives not available or appropriate per current SOC Interval Note History & Physical reviewed/Exam performed by Physician: Yes Changes to H&P: No
[2023-03-10] MEDS: CEFAZOLIN 2 GM/100 ML PREMIX 100 ML IV (07:49)
--- NOTE | 2023-03-10 08:02 | SUR.OPER ---
Lithotomy on padded OR bed, head on pillow, arms secured on padded arm boards at <90 degrees abduction. Legs secured in padded yellow fins stirrups.
[2023-03-10 08:33] VITALS: BP 117/68; PULSE 75; RESP 11; TEMP 36.7; O2SAT 96
[2023-03-10 08:37] VITALS: BP 110/69; PULSE 72; RESP 11; O2SAT 96
[2023-03-10 08:43] VITALS: BP 111/68; PULSE 70; RESP 11; O2SAT 96
--- NOTE | 2023-03-10 08:45 | PM.OP.1 ---
Procedure & Clinicians Procedure: Cystoscopy with bladder biopsy and fulguration Same procedure as scheduled: Yes Indications: This 77-year-old female was undergoing workup for asymptomatic microscopic hematuria. That workup resulted in 1 CT scan showing mild uncomplicated diverticulitis 2. A velvety erythematous lesion on the left lateral and anterior wall of the bladder. Which felt that the time. Biopsy could be related potentially to the diverticulitis and some inflammatory changes but also appeared velvety and could represent CIS. She presents for biopsy of the bladder with fulguration. Surgeon: Aditya Jara Anesthesia Type: General Operative Notes Findings: Findings: Labial fusion, urethra normal along its length, ureteral orifices in normal position with clear efflux. Again on the left lateral aspect of the bladder there is an erythematous area which is biopsied. Random biopsies were also taken from the dome of the bladder, cephalad bladder, right lateral wall. Closure Type: not applicable Specimen(s): other (Biopsies from the bladder as noted above) Applied: catheter ([address] Guerra catheter 10 cc in the balloon) Estimated Blood Loss (mL): 5 Blood products transfused: none Procedure in detail: Procedure in detail: After informed consent was obtained, the patient was identified and brought to the operating room where she was placed in supine position on the operative table. Once there anesthesia was induced and maintained. Ensuring an adequate level of anesthesia the patient was transitioned to the lithotomy position where she was prepped, draped, prepared for Transurethral procedure. After prepping, draping, ensuring an adequate level of anesthesia and a time-out 22 Nicaraguan cystoscope was passed through the urethra in the bladder were cystoscopy was formed with the 30 and 70 degree lens. Biopsy was then taken using the biopsy forceps which resulted in 5 total samples being taken. The by biopsy forceps was removed Bugbee electrode was inserted and each of the biopsy sites was fulgurated controlling all bleeding achieving hemostasis and then a small margin taken around each with the cautery. With this done the bladder was filled drained filled and drained hemostasis appeared to be good bladder was left full scope was removed the 18 [place]ar[place]uan catheter was passed through the urethra in the bladder the balloon filled with 10 cc of sterile water and placed to gravity drainage. The patient was then awakened having tolerated the procedure well she was then transitioned to the postanesthesia care unit for recovery. There were no complications. Patient will be discharged to home with a Guerra catheter to follow up my office in approximately 10 days. Complications: none Post-operative Condition: stable Disposition: PACU Plan for aftercare: Discharge to home with Guerra catheter follow up my office in approximately 10 days for catheter removal.
[2023-03-10 08:48] VITALS: BP 124/76; PULSE 72; RESP 12; O2SAT 96
[2023-03-10 08:55] VITALS: BP 120/77; PULSE 69; RESP 11; TEMP 36.2; O2SAT 94
== END 2023-03-10 09:45 | disposition home or self-care (01) ==
PROVIDERS: PCP Family Medicine; Referring Provider Urology; Visit Provider Urology
PROC: 0TBB8ZZ Excision of Bladder, Via Natural or Artificial Opening Endoscopic (ICD-10-PCS; CPT 52204; principal; 2023-03-10 07:45)
DX: N30.21 Other chronic cystitis with hematuria (principal)
CPT/HCPCS: 52204; 82962; J0690; J1100; J1885; J2405; J2704; J3010

== ENCOUNTER → 2023-03-18 08:57 | Outpatient (CLI) | payer MEDICARE, SELFPAY ==
[2023-03-06 09:11] VITALS: BMI 32.5
== END ==
PROVIDERS: PCP Family Medicine; Visit Provider Urology
DX: R31.0 Gross hematuria (principal); R31.21 Asymptomatic microscopic hematuria
CPT/HCPCS: 87077; 87086; 87186

== ENCOUNTER → 2025-07-10 10:24 | Outpatient (CLI) | payer MEDICARE, SELFPAY ==
[2023-03-06 09:11] VITALS: BMI 32.5
[2025-07-10 11:14] LABS: Hemoglobin A1C% w Est Avg Glu 6.1 % (4.0-6.0)
[2025-07-10 11:16] LABS: Cholesterol 202 mg/dL (140-199); HDL Cholesterol 77 mg/dL (40-60); Triglycerides 150 mg/dL (35-150)
== END ==
PROVIDERS: PCP Family Medicine; Referring Provider Family Medicine; Visit Provider Family Medicine
DX: Z13.1 Encounter for screening for diabetes mellitus (principal); Z13.220 Encounter for screening for lipoid disorders
CPT/HCPCS: 36415; 80061; 83036